=== PATIENT | male | born 1955 | race Caucasian/White ===

== ENCOUNTER 2021-06-03 14:55 | Emergency (ER) | payer MEDICARE, BC ==
--- NOTE | 2021-06-03 15:57 | EDM.PDOC ---
ED HPI GENERAL MEDICAL PROBLEM - General Chief Complaint: ENT Problem Stated Complaint: NOSEBLEED Time Seen by Provider: 06/03/21 15:55 - History of Present Illness INITIAL COMMENTS - FREE TEXT/NARRATIVE: 66-year-old male presents the emergency room with a nosebleed. Patient had a mild nosebleed yesterday afternoon he was able to get this stopped. However couple hours prior to arrival this reoccurred out of the left nare today. He packed it with a paper towel and came into the emergency room. [place] him this long to get in. Patient has a history of hypertension but this seems to be reasonably controlled at this time. He has had a history of recurrent nosebleeds in the past and has had balloon packing in the past. - Related Data Allergies Allergy/AdvReac Type Severity Reaction Status Date / Time No Known Allergies Allergy Verified 06/03/21 15:46 Home Meds: Home Meds . [No Known Home Meds] 06/03/21 [History] Past Medical History HEENT History: Reports: Epistaxis Cardiovascular History: Reports: None Respiratory History: Reports: None Gastrointestinal History: Reports: Other (See Below) Other Gastrointestinal History: elevated LFT's Genitourinary History: Reports: Other (See Below) Other Genitourinary History: testicular cancer, low testosterone [employer] History: Reports: None Musculoskeletal History: Reports: None Neurological History: Reports: None Psychiatric History: Reports: Addiction Hematologic History: Reports: None Immunologic History: Reports: None Oncologic (Cancer) History: Reports: Other (See Below) Other Oncologic History: testicular Dermatologic History: Reports: None - Past Surgical History Head Surgeries/Procedures: Reports: None Cardiovascular Surgical History: Reports: None Respiratory Surgical History: Reports: None GI Surgical History: Reports: Colonoscopy Male Surgical History: Reports: Other (See Below) Other Male Surgeries/Procedures: testicular cancer 14 years ago Endocrine Surgical History: Reports: None Neurological Surgical History: Reports: None Musculoskeletal Surgical History: Reports: None Oncologic Surgical History: Reports: None Dermatological Surgical History: Reports: None Social & Family History - Tobacco Use Tobacco Use Status *Q: Never Tobacco User - Caffeine Use Caffeine Use: Reports: Coffee - Recreational Drug Use Recreational Drug Use: No - Living Situation & Occupation Living situation: Reports: Occupation: Unemployed ED ROS ENT - Review of Systems Review Of Systems: See Below Constitutional: Reports: No Symptoms HEENT: Reports: Nosebleed Respiratory: Reports: No Symptoms Cardiovascular: Reports: No Symptoms GI/Abdominal: Reports: No Symptoms ED EXAM, ENT - Physical Exam Exam: See Below Exam Limited By: No Limitations General Appearance: Alert, No Apparent Distress Nose: Other (No external inspection he had a paper towel packing stuffed into his left naris. This was removed and then the patient blew his nose to remove the clot he held direct pressure to it after the direct pressure I examined his nose did not see the site of the bleeding.) Mouth/Throat: Normal Inspection, Normal Gums, Normal Lips, Normal Oropharynx, Normal Teeth, Other (No blood down the posterior pharynx) Head: Atraumatic, Normocephalic Neck: Normal Inspection, Supple, Non-Tender, Full Range of Motion. No: Lymphadenopathy (L), Lymphadenopathy (R) Respiratory/Chest: No Respiratory Distress, Lungs Clear, Normal Breath Sounds Cardiovascular: Regular Rate, Rhythm, No Edema, No Murmur ED ENT PROCEDURES - Epistaxis Procedure Indication: Epistaxis Recent anticoagulants/antiplatlets: No Uncontrolled HTN: No Recent septal/nasal surgery: No Site of bleeding: Left Nare Clearing of clots: Patient Blew Nose, Other (Patient held direct pressure to his nose for 10 minutes and the bleeding was stopped) Complications: No Course - Vital Signs Last Recorded V/S: Last Vital Signs Temp 36.7 C 06/03/21 15:45 Pulse 84 06/03/21 15:45 Resp 18 06/03/21 15:45 BP 142/97 H 06/03/21 15:45 Pulse Ox 100 06/03/21 15:45 - Orders/Labs/Meds Labs: Laboratory Tests 06/03/21 06/03/21 Range/Units 16:05 16:05 WBC 6.43 (4.23-9.07) K/mm3 RBC 4.11 L (4.63-6.08) M/mm3 Hgb 13.9 (13.7-17.5) gm/dl Hct 41.2 (40.1-51.0) % MCV 100.2 H (79.0-92.2) fl MCH 33.8 H (25.7-32.2) pg MCHC 33.7 (32.2-35.5) g/dl RDW Std Deviation 47.2 H (35.1-43.9) fL Plt Count 274 (163-337) K/mm3 MPV 9.8 (9.4-12.3) fl Neut % (Auto) 78.0 H (34.0-67.9) % Lymph % (Auto) 12.9 L (21.8-53.1) % Floyd % (Auto) 7.5 (5.3-12.2) % Eos % (Auto) 1.1 (0.8-7.0) Baso % (Auto) 0.3 (0.1-1.2) % Neut # (Auto) 5.02 (1.78-5.38) K/mm3 Lymph # (Auto) 0.83 L (1.32-3.57) K/mm3 Floyd # (Auto) 0.48 (0.30-0.82) K/mm3 Eos # (Auto) 0.07 (0.04-0.54) K/mm3 Baso # (Auto) 0.02 (0.01-0.08) K/mm3 PT 10.8 (9.7-12.0) SECONDS INR 0.97 APTT 27.3 (21.7-31.4) SECONDS - Re-Assessments/Exams Free Text/Narrative Re-Assessment/Exam: 06/03/21 17:26 Patient had relief of his nosebleed with blowing it good and squeezing the anterior nose together for 10 minutes. Coag studies are unremarkable CBC is stable he is not hypertensive Departure - Departure Time of Disposition: 17:28 Disposition: Home, Self-Care 01 Condition: Good Clinical Impression: Epistaxis - Discharge Information Instructions: Nosebleed, Adult, [id number] Referrals: Rainer Beckett MD [Primary Care Provider] - Forms: ED Department Discharge Additional Instructions: Return to the emergency room with any questions problems or worsening symptoms. As we discussed if this nosebleed reoccurs, blow your nose and clear all the clot. Then hold direct pressure for at least 10 minutes over the soft portion ear nose from side to side. Use Preparation H in roughly 1/3 of an inch gently roll it to the inside of your nose with a Q-tip. You can also use K-Y jelly to the outside undersurface of your nose. Follow-up with your regular healthcare provider as needed. Sepsis Event Note (ED) - Focused Exam Vital Signs: Vital Signs Temp Pulse Resp BP Pulse Ox 06/03/21 15:45 36.7 C 84 18 142/97 H 100
== END 2021-06-03 17:39 | disposition home or self-care (01) ==
LOC: JD.ED 14:55
DX: R04.0 Epistaxis (principal)
CPT/HCPCS: 30901; 36415; 85025; 85610; 85730; 99283; 99283-25

== ENCOUNTER 2021-09-02 03:14 | Emergency (ER) | payer MEDICARE, BC ==
[2021-09-02] MEDS ORDERED: Alum Hydrox/Mag Hydrox/Simeth 30 ML, Lidocaine 2% 15 ML PO STA ×2 (03:51)
== END 2021-09-02 04:25 | disposition home or self-care (01) ==
LOC: JD.ED 03:14
DX: T18.128A Food in esophagus causing other injury, initial encounter (principal); I10 Essential (primary) hypertension; Z79.899 Other long term (current) drug therapy
CPT/HCPCS: 99283; A9270

== ENCOUNTER 2022-01-10 12:27 | Emergency (ER) | payer MEDICARE, BC ==
[2022-01-10 14:43] LABS: ESTIMATED GFR 98 mL/min (>60)
== END 2022-01-10 16:38 | disposition home or self-care (01) ==
LOC: JD.ED 12:27
DX: R42 Dizziness and giddiness (principal); I10 Essential (primary) hypertension; Z79.899 Other long term (current) drug therapy
CPT/HCPCS: 36415; 70450; 80053; 83735; 84484; 85025; 93005; 97161; 99284; A9270; 93010

== ENCOUNTER 2024-01-28 00:15 | Emergency (ER) | payer MEDICARE, OTHER ==
[2024-01-28 01:19] LABS: BASOPHILS PERCENT AUTO 0.5 % (0.0-1.0); EOSINOPHILS PERCENT AUTO 0.5 % (0.0-6.0); HEMOGLOBIN 12.7 gm/dl (14.0-18.0); IMMATURE GRAN ABSOLUTE AUTO 0.02 K/mm3 (0.00-0.05); IMMATURE GRAN PERCENT AUTO 0.3 % (0.0-0.4); LYMPHOCYTES ABSOLUTE AUTO 0.8 K/mm3 (1.0-4.8); LYMPHOCYTES PERCENT AUTO 13.5 % (24.0-44.0); MEAN CORPUSCULAR HEMOGLOBIN 37.7 pg (28.0-32.0); MEAN CORPUSCULAR HGB CONC 35.3 g/dl (32.0-36.0); MEAN CORPUSCULAR VOLUME 106.8 fl (83.0-99.0); MEAN PLATELET VOLUME 9.4 fl (9.4-12.4); MONOCYTES ABSOLUTE AUTO 0.4 K/mm3 (0.0-0.8); MONOCYTES PERCENT AUTO 6.6 % (0.0-8.0); NEUTROPHILS ABSOLUTE AUTO 4.7 K/mm3 (1.8-7.7); NEUTROPHILS PERCENT AUTO 78.6 % (41.0-71.0); PLATELET COUNT,PLT 202 K/mm3 (150-400); RED BLOOD CELL COUNT 3.37 M/mm3 (4.52-5.90); WHITE BLOOD CELL COUNT,WBC 6.02 K/mm3 (3.9-11.3)
[2024-01-28 01:40] LABS: A/G RATIO 1.1 (1-2); ALBUMIN 3.6 g/dl (3.4-5.0); ANION GAP 11.5 (5-15); BILIRUBIN TOTAL 1.1 mg/dL (0.2-1.0); CALCIUM 8.8 mg/dL (8.5-10.1); EST CRCL DRUG DOSING (CG) 69.35 mL/min; MAGNESIUM 1.7 mg/dL (1.8-2.4); POTASSIUM,K 3.5 mEq/L (3.5-5.1); PROTEIN TOTAL,TP 6.8 g/dl (6.4-8.2)
== END 2024-01-28 02:10 | disposition home or self-care (01) ==
LOC: JD.ED 00:15
DX: R20.2 Paresthesia of skin (principal); I10 Essential (primary) hypertension; E66.9 Obesity, unspecified; Z79.899 Other long term (current) drug therapy; Z68.32 Body mass index [BMI] 32.0-32.9, adult
CPT/HCPCS: 36415; 70450; 70450-26; 80053; 83735; 85025; 93005; 93010; 99282; 99284